=== PATIENT | female | born 1935 | race Caucasian/White ===

== ENCOUNTER 2018-09-06 05:23 | Inpatient (IN) | payer OTHER ==
--- NOTE | 2018-09-05 18:07 | GHP ---
[f rep st] PREOP HISTORY AND PHYSICAL DATE OF ADMISSION: 09/06/2018 HISTORY: Miri is an 83-year-old female who presents with chronic right knee pain, predominantly laterally. Her knee pain has persisted over 15 years. She has had swelling, stiffness. Her knee p ain inhibits her gait and activities, including activities of daily living. She has had appropriate treatments including hyaluronic acid courses that have not been very helpful. She does respond to st eroid injections. She has had physical therapy for a knee program and strengthening and this has pro vided some relief. She has also tried a lateral tool distributor brace which has been somewhat helpful, but she continues to have significant limitations and discomfort. Her x-rays show significant tricompart ment right knee osteoarthritis, [id number] in the lateral compartment with degenerative lipping and subchondral sclerosis. She has tried appropriate medications. She would like to remain active. Espinoza garza has elected to pursue a right total knee arthroplasty. PAST MEDICAL HISTORY: Remarkable for rheumatoid arthritis. She has reflux, a history of porphyria, migraines, liver cancer. Her surgeries include resection of tumor. She has had a hystere ctomy and a . ALLERGIES: She has an allergy to barbiturates and sulfa. MEDICATIONS: Her medications are leflunomide 10 mg tablets, and she also uses eye drops which are Zi optan. SOCIAL HISTORY: She is a nonsmoker. REVIEW OF SYSTEMS: Positive from a GI standpoint for reflux, from a musculoskeletal standpoint for r heumatoid arthritis. PHYSICAL EXAM: GENERAL: Miri is a well-developed, well-nourished female, in no apparent distres s. HEAD AND NECK: Normocephalic, atraumatic. CHEST: Clear. CARDIOVASCULAR: Regular rate and rhy thm. ABDOMEN: Soft. NEUROLOGIC: She is alert and oriented x3. EXTREMITIES: Examination of the r ight knee shows valgus alignment. She has near full extension, flexion to about 120 degrees. She grimm s a small effusion. She has tenderness, especially lateral aspect of the knee. SKIN: Intact. NEUR OVASCULAR: Intact. IMPRESSION: Right knee osteoarthritis. PLAN: Right total knee arthroplasty. The benefits and risks of surgery have been reviewed with Cons tance and she understands that the risks include infection, damage to blood vessel or nerve, failure or loosening of components and need for revision, blood clot in the leg or lung, bleeding and need fo r transfusion. The rigorous nature of the rehab has been reviewed. She has signed a consent form an d she wishes to proceed. /[id number]/MODL
[2018-09-06] MEDS ORDERED: POVIDONE-IODINE 20 ML in SODIUM CL IRRIG SOLUTION 500 ML IRR ONE (05:52)
[2018-09-06] MEDS ORDERED: GABAPENTIN 300 MG CAP PO ONE (05:52)
[2018-09-06] MEDS ORDERED: ONDANSETRON 4 MG/2 ML VIAL IVP ONE (05:52)
[2018-09-06] MEDS ORDERED: TRANEXAMIC ACID 1,000 MG in NS 100 ML IV ONE (05:52)
[2018-09-06] MEDS ORDERED: FAMOTIDINE 20 MG TAB PO ONE (05:52)
[2018-09-06] MEDS ORDERED: DEXAMETHASONE 4 MG/ML VIAL IVP ONE (05:52)
[2018-09-06] MEDS ORDERED: ROPIVACAINE 0.2% 80 MG, EPINEPHrine 0.2 MG, KETOROLAC TROMETHAMINE 30 MG in SYRINGE 0 ML IU ONE (05:52)
[2018-09-06] MEDS ORDERED: ACETAMINOPHEN 325 MG TAB PO ONE (05:52)
[2018-09-06] MEDS ORDERED: LR 1,000 ML IV ONE (05:53)
[2018-09-06] MEDS ORDERED: VANCOMYCIN 750 MG in D5W 150 ML IV ONE (06:00)
[2018-09-06] MEDS ORDERED: ceFAZolin 1 GM/5 ML SYR ONE (06:44)
[2018-09-06] MEDS ORDERED: ceFAZolin 2 GM/DEXTROSE 100 ML IV ONE (07:00)
--- NOTE | 2018-09-06 07:00 | PDANEPAE ---
ANE History of Present Illness Right knee pain, here for R TKA ANE Past Medical History - Cardiovascular History Hx Hypertension: No Hx Arrhythmias: No Hx Chest Pain: No Hx Coronary Artery / Peripheral Vascular Disease: No Hx CHF / Valvular Disease: No Hx Palpitations: No - Pulmonary History Hx COPD: No Hx Asthma/Reactive Airway Disease: No Hx Recent Upper Respiratory Infection: No Hx Oxygen in Use at Home: No Hx Sleep Apnea: No Sleep Apnea Screening Result - Last Documented: Negative - Neurologic History Hx Cerebrovascular Accident: No Hx Seizures: No Hx Dementia: No Neurologic History Comment: hx of migraines - Endocrine History Hx Diabetes: No - Renal History Hx Renal Disorders: No - Liver History Hx Hepatic Disorders: No - Neurological & Psychiatric Hx Hx Neurological and Psychiatric Disorders: No - Cancer History Hx Cancer: Yes Cancer History Comment: liver cancer with resection surgery only in 2014 - Congenital Disorder History Hx Congenital Disorders: No - GI History Hx Gastrointestinal Disorders: No - Other Health History Other Health History: rheumatiod arthritis. wears glasses for driving - Chronic Pain History Chronic Pain: Yes (right knee) - Surgical History Prior Surgeries: liver resection for cancerous tumor. right achilles tendon repair. tony. hysterectomy with oophorectomy. several breast biopsies ANE Review of Systems Review of Systems: - Exercise capacity METS (RN): 4 METS ANE Patient History - Allergies Allergies/Adverse Reactions: Barbiturates Allergy (Verified 08/23/18 11:11) Penicillins Allergy (Verified 08/23/18 11:11) injections only- swelling at site Sulfa (Sulfonamide Antibiotics) Allergy (Verified 08/23/18 11:11) - Home Medications Home Medications: Leflunomide 08/23/18 [Last Taken 09/06/18] Zioptan 0.0015% Eye Drops 08/23/18 [Last Taken 09/05/18] - NPO status NPO Since - Liquids (Date): 09/06/18 NPO Since - Liquids (Time): 04:30 NPO Since - Solids (Date): 09/05/18 NPO Since - Solids (Time): 17:00 - Smoking Hx Smoking Status: Former smoker - Family Anes Hx Family Hx Anesthesia Complications: none ANE Labs/Vital Signs - Vital Signs Blood Pressure: 139/70 Heart Rate: 71 Respiratory Rate: 16 O2 Sat (%): 96 Height: 162.56 cm Weight: 52.617 kg ANE Physical Exam - Airway Neck exam: decreased ROM Mallampati Score: Class 1 Mouth exam: normal dental/mouth exam - Pulmonary Pulmonary: no respiratory distress, no rales or rhonchi - Cardiovascular Cardiovascular: regular rate and rhythym, no murmur, rub, or gallop - ASA Status ASA Status: III ANE Anesthesia Plan Anesthesia Plan: GA with mask, spinal Regional Anesthesia: single shot NB Total IV Anesthesia: Yes
[2018-09-06] MEDS ORDERED: MIDAZOLAM 2 MG/2 ML VIAL IVP ONE (07:01)
[2018-09-06] MEDS ORDERED: MIDAZOLAM 2 MG/2 ML VIAL ONE (07:01)
[2018-09-06] MEDS ORDERED: BUPIVACAINE/DEXTROSE 7.5MG/ML 2 ML SPINAL AMP SP ONE (07:04)
[2018-09-06] MEDS ORDERED: PROPOFOL/EMULSION 500 MG/50 ML BOTTLE IV ONE (07:04)
[2018-09-06] MEDS ORDERED: LIDOCAINE 2% 100 MG/5 ML SYR ONE (07:04)
[2018-09-06] MEDS ORDERED: fentaNYL 100 MCG/2 ML INJ ONE (07:04)
[2018-09-06] MEDS ORDERED: PROPOFOL 200 MG/20 ML VIAL ONE (07:04)
--- NOTE | 2018-09-06 07:27 | PDHPUP ---
History & Physical Update H&P update statement: This history and physical update is based on an assessment of the patient which was completed after admission or registration (within 24 hours), but prior to the surgery/procedure. no change H&P update: no change in patient's condition since H&P completed (no change)
[2018-09-06] MEDS: VANCOMYCIN PHARMACY TO DOSE MISC ONE ×2 (08:12→10:39)
[2018-09-06] MEDS ORDERED: oxyCODONE IR 5 MG TAB PO PRN (08:17)
[2018-09-06] MEDS ORDERED: fentaNYL 100 MCG/2 ML INJ IVP PRN (08:17)
[2018-09-06] MEDS ORDERED: HYDROmorphONE/DILAUDID 2 MG/ML INJ IVP PRN (08:17)
[2018-09-06] MEDS ORDERED: ONDANSETRON 4 MG/2 ML VIAL IVP PRN ×2 (08:17→09:37)
[2018-09-06] MEDS ORDERED: NALOXONE HCL 0.4 MG/ML INJ IVP PRN (08:17)
[2018-09-06] MEDS ORDERED: DIAZEPAM 5 MG/ML 1 ML SYR IVP PRN (08:24)
[2018-09-06] MEDS ORDERED: MEPERIDINE 25 MG/0.5 ML AMP IVP PRN (08:24)
[2018-09-06] MEDS ORDERED: LR 500 ML IV PRN (08:24)
[2018-09-06] MEDS ORDERED: ACETAMINOPHEN 500 MG TAB PO PRN (08:24)
[2018-09-06] MEDS ORDERED: TEMAZEPAM 15 MG CAP PO PRN (09:37)
[2018-09-06] MEDS ORDERED: METOCLOPRAMIDE 10 MG/2 ML VIAL IVP PRN (09:37)
[2018-09-06] MEDS ORDERED: PROMETHAZINE HCL 25 MG SUPPR PR PRN (09:37)
[2018-09-06] MEDS ORDERED: DIPHENOXYLATE/ATROPINE LOMOTIL 1 TAB PO PRN (09:37)
[2018-09-06] MEDS ORDERED: ONDANSETRON DISINTEGRATING 4 MG TAB PO PRN (09:37)
[2018-09-06] MEDS ORDERED: LACTULOSE 20 GM/30 ML UDCUP PO PRN (09:37)
[2018-09-06] MEDS ORDERED: POLYETHYLENE GLYCOL 3350 17 GM PKT PO PRN (09:37)
[2018-09-06] MEDS ORDERED: BISACODYL 10 MG SUPP PR PRN (09:37)
[2018-09-06] MEDS ORDERED: diphenhydrAMINE 25 MG CAP PO PRN (09:37)
[2018-09-06] MEDS ORDERED: MAGNESIUM HYDROXIDE 30 ML UDCUP PO PRN (09:37)
[2018-09-06] MEDS ORDERED: PROMETHAZINE HCL 25 MG/ML INJ IVP PRN (09:37)
[2018-09-06] MEDS ORDERED: LR 1,000 ML IV SCH (10:00)
--- NOTE | 2018-09-06 10:00 | POSTANESTH ---
Post Anesthetic Evaluation Cardiovascular Status: Normal, Stable Respiratory Status: Normal, Stable Level of Consciousness/Mental Status: Can Participate in Eval, Alert and Oriented Pain Control: Adequate, Prn Tx Ordered Nausea/Vomiting Control: Adequate, Prn Tx Ordered Complications Possibly Related to Anesthesia: None Noted (moving bilateral lower extrem, tolerated rommel we.. Chp, US images on chart. 30ml 0.5% Rop injected under direct visualization w/o complication)
--- NOTE | 2018-09-06 10:23 | PDMN ---
Medical Necessity Medical necessity: [facility] [place] S700 Knee Artroplasty, Total, A-2 days: 83 yo s/p R TKA, meets IP status for advanced age, ASA III, hx RA, liver ca, porphyria.
--- NOTE | 2018-09-06 10:29 | GOP ---
[f rep st] OPERATIVE REPORT DATE OF OPERATION: SURGEON: Antonio Jay MD NEUROSURGEON: Antonio Jay MD LINUX DEVOPS ENGINEER: PHUC AnguloA, LSA ANESTHESIA: Spinal. ANESTHESIOLOGIST: Joshua De La Cruz DO. PREOPERATIVE DIAGNOSIS: Right knee osteoarthritis. POSTOPERATIVE DIAGNOSIS: Right knee osteoarthritis. PROCEDURE PERFORMED: Right total knee arthroplasty. FINDINGS: SPECIMENS: Include excised bone. ESTIMATED BLOOD LOSS: About 30 cc. INDICATIONS: The patient is an 83-year-old female who presents with history, exam, and x-rays consis tent with severe tricompartment osteoarthritis of the right knee, most severely in the lateral compar tment with valgus malalignment. She has tried appropriate conservative measures, continues to have s ignificant pain and disability from her knee, and elected to undergo a right total knee arthroplasty. DESCRIPTION OF PROCEDURE: The patient was taken to the operating room, and seated on the OR table, a spinal anesthetic was provided by Dr. De La Cruz. She was then placed supine, she received preoperative Ancef and preoperative tranexamic acid. A tourniquet was fit high on the right thigh. I adjusted he r position on the bed to provide neutral rotation of the leg. The right lower extremity was prepped and draped free in the usual fashion with chlorhexidine. The limb was elevated, exsanguinated, the t ourniquet inflated to 250 mmHg. I made a longitudinal incision in the midline, used a medial parapatellar arthrotomy and inverted the patella. Thickness was 20 mm and I removed 9 mm of cartilage and bone and measured the surface at a 35 diameter implant. I drilled peg holes. Combination of the trial component and her [place] patell a restored her patellar thickness. The patella was inverted and the knee flexed. I drilled a banquet pilot hole in the distal femur. She was in quite a bit of valgus alignment. I used a 6-degree valgus cut of the distal femur, making sure I removed enough bone on the hypoplastic lateral femoral condyle. I removed an extra 2 mm to accommodate her flexion contracture. I sized the femur to a size 5. The c utting block was advanced a bit anteriorly to avoid notching and I completed the anterior, posterior, and camphor cuts, and the notch cuts to this bi-cruciate stabilized knee. The size 5 component was a good fit and I removed rimming osteophytes. I placed appropriate retracto rs, flexed the knee, and used an extramedullary device for the tibia. I adjusted rotation, posterior slope, and overall alignment. From a previous edwin from a spacer between the femur and the tibia, I made a conservative cut a little above it, a nice transverse cut of the tibia. I sized the surface at a size 4 and I did trial reductions to dial in the rotation, and I completed the tibial prep. All the components were removed. All the surfaces were jet lavaged with antibiotic irrigation, methylme thacrylate was used on all 3 components. The femur a size 5, the tibia size 4, and the patella 35. After the cement had hardened, I did trial reductions and found that an 11 mm articular insert provid ed appropriate stability and full range of motion. The articular tray was placed and the tourniquet was let down, a little over an hour tourniquet time. I did infiltrate the tissues with a joint cocktail. She received a second dose of tranexamic acid. Antibiotic, including Betadine solution irrigation was used. The wound was closed in layers, the art hrotomy incision and the joint closed with interrupted [id number] sutures of 0 [place]. The s ubcutaneous tissue was closed with Monocryl and the skin with a running subcuticular absorbable sutur e. I further dressed the wound with a little tissue glue, some Steri-Strips, 4 x 4 gauze, and steril e Webril. Over this, I placed a stocking. There were no complications. DRAINS: None. COUNTS: Correct. The patient was taken in stable condition to recovery. My computer assistant was a medical necessity for leg positioning and soft tissue retraction. SUMMARY OF COMPONENTS: This is a [employer] knee, the femur is Oxinium, the articular insert crosslinked polyethylene. All components were cemented. The femur is a size 5, the tibia siz e 4, patella 35, and the articular insert 11 mm. /[id number]/MODL
[2018-09-06] MEDS: ACETAMINOPHEN 325 MG TAB PO SCH ×4 (12:02→23:54)
[2018-09-06] MEDS: KETOROLAC 15 MG/1 ML SDV IVP SCH ×3 (12:02→23:51)
[2018-09-06] MEDS: oxyCODONE IR 5 MG TAB PO PRN ×2 (13:18→20:52)
[2018-09-06] MEDS: CYCLOBENZAPRINE 10 MG TAB PO PRN ×2 (14:28→21:02)
[2018-09-06] MEDS: ceFAZolin 2 GM/DEXTROSE 100 ML IV SCH ×2 (14:28→22:00)
[2018-09-06] MEDS: FAMOTIDINE 20 MG TAB PO SCH (20:51)
[2018-09-06] MEDS: SENNOSIDES/DOCUSATE SODIUM TAB PO SCH (20:51)
[2018-09-06] MEDS: ASPIRIN 81 MG CHEWABLE TAB PO SCH (20:53)
[2018-09-07] MEDS: KETOROLAC 15 MG/1 ML SDV IVP SCH (06:21)
[2018-09-07] MEDS: CYCLOBENZAPRINE 10 MG TAB PO PRN (06:27)
[2018-09-07] MEDS: ACETAMINOPHEN 325 MG TAB PO SCH ×2 (06:46→11:30)
--- NOTE | 2018-09-07 08:30 | SOAPPROG ---
SHEFALI Progress Note Assessment/Plan: Assessment: 09/07/18 POD#1 TKA, pain controlled, xray fine, has been up Plan: 09/07/18 08:27 PT and home, oxy, nsaid, tyl, has PT set up Objective: Vital Signs Temp Pulse Resp BP Pulse Ox 36.7 C 73 14 136/73 H 97 09/07/18 04:00 09/07/18 04:00 09/07/18 04:00 09/07/18 04:00 09/07/18 04:00 Laboratory Results 09/07/18 04:51 09/06/18 09/07/18 09/08/18 05:59 05:59 05:59 Intake Total 2820 Output Total 950 Balance 1870 ICD10 Worksheet Patient Problems: Problems Problem Status Onset Osteoarthritis of knee, unilateral Acute - ICD10 Problem Qualifiers (1) Osteoarthritis of knee, unilateral
[2018-09-07 09:06] VITALS: BP 71/45
[2018-09-07] MEDS: SENNOSIDES/DOCUSATE SODIUM TAB PO SCH (09:40)
[2018-09-07] MEDS: ASPIRIN 81 MG CHEWABLE TAB PO SCH (09:40)
[2018-09-07] MEDS: FAMOTIDINE 20 MG TAB PO SCH (09:40)
--- NOTE | 2018-09-07 11:52 | ASMTLACE ---
LACE Length of stay for Answers: 2 days current admission Acuity / Level of Answers: Yes Care: Did the patient have an inpatient admission? Comorbidities - select Answers: Opioid dependence all that apply / Chronic pain # of Emergency department Answers: 1-2 visits in the last 6 months Score: 10 Date Signed: 09/07/2018 11:51 AM Electronically Signed By:KATIUSKA Austin
--- NOTE | 2018-09-07 13:42 | ASMTCMCOM ---
CM Note CM Note Notes: Pt had planned R TKA. rec outpatient. PT rec home/outpatient. No CM d/c needs identified. Date Signed: 09/07/2018 01:42 PM Electronically Signed By:KATIUSKA Austin
== END 2018-09-07 13:21 | disposition home or self-care (01) | DRG 470 ==
LOC: FSGY 05:23 → F3N 09:37
PROVIDERS: ADMIT Orthopaedic Surgery; ATTEND Orthopaedic Surgery
PROC: 0SRC0J9 Replacement of Right Knee Joint with Synthetic Substitute, Cemented, Open Approach (ICD-10-PCS; principal; 2018-09-06 07:15)
DX: M17.11 Unilateral primary osteoarthritis, right knee (principal); M06.9 Rheumatoid arthritis, unspecified; K21.9 Gastro-esophageal reflux disease without esophagitis; G43.909 Migraine, unspecified, not intractable, without status migrainosus; Z85.05 Personal history of malignant neoplasm of liver
CPT/HCPCS: 97110-GP; 97116-GP; 97161-GP; 97165-GO; C1713; J0171; J0690; J1100; J1885; J2001; J2250; J2405; J2704; J2795; J3010; J3370